=== PATIENT | female | born 1995 | race African-American/Black ===

== ENCOUNTER 2019-02-13 01:11 | Emergency (ER) | payer BC ==
[2019-02-13] MEDS ORDERED: Metoclopramide 10 MG/2 ML SDV IVPUSH ONE (01:13)
[2019-02-13] MEDS ORDERED: Sodium Chloride 0.9% 10 ML Syringe FLUSH PRN (01:13)
[2019-02-13] MEDS ORDERED: Sodium Chloride 0.9% 1,000 ML IV ONE (01:14)
--- NOTE | 2019-02-13 01:24 | EDM.PDOC ---
ED HPI GENERAL MEDICAL PROBLEM - General Chief Complaint: Gastrointestinal Problem Stated Complaint: Nausea / Vomiting Time Seen by Provider: 02/13/19 01:11 Source of Information: Reports: Patient, RN, RN Notes Reviewed History Limitations: Reports: No Limitations - History of Present Illness INITIAL COMMENTS - FREE TEXT/NARRATIVE: Patient presents to the ED at [facility] for the evaluation of nausea and vomiting that started around 5 pm last evening. She states her last meal was around 2pm. She does not think she has been around any sick contacts. No recent travel. No change in medications. No questionable foods. Patient states she has vomited at least 8 times since onset. No diarrhea. Has a headache. Has not taken anything for her symptoms. Denies any focal neurological problems. Patient is 7 months . She feels movement. Patient denies any recent illness. No fevers or chills. Denies any abdominal or pelvic pain. No vaginal discharge or leakage of fluid. Onset: Today Onset Date: 02/13/19 Onset Time: 17:00 Headache Pain Score (Numeric/FACES): 6 - Related Data Allergies Allergy/AdvReac Type Severity Reaction Status Date / Time Penicillins Allergy Hives Verified 02/13/19 01:13 Home Meds: Home Meds [id number]/Ferrous Fumarate/FA [ Tablet] 1 each PO DAILY 02/13/19 [History] ED ROS GENERAL - Review of Systems Review Of Systems: See Below Constitutional: Denies: Fever, Chills Respiratory: Denies: Shortness of Breath, Cough Cardiovascular: Denies: Chest Pain, Palpitations GI/Abdominal: Reports: Nausea, Vomiting. Denies: Abdominal Pain, Diarrhea Skin: Reports: No Symptoms Neurological: Reports: No Symptoms ED EXAM, GI/ABD - Physical Exam Exam: See Below Exam Limited By: No Limitations General Appearance: Alert, No Apparent Distress Respiratory/Chest: No Respiratory Distress, Lungs Clear, Normal Breath Sounds Cardiovascular: Normal Peripheral Pulses, Regular Rate, Rhythm GI/Abdominal Exam: Normal Bowel Sounds, Soft, Non-Tender Neurological: Alert, Oriented Skin Exam: Warm, Dry, Intact, Normal Color Course - Vital Signs Last Recorded V/S: Last Vital Signs Temp 36.9 C 02/13/19 01:43 Pulse 110 H 02/13/19 01:43 Resp 14 02/13/19 01:43 BP 117/62 02/13/19 01:43 Pulse Ox 100 04/29/19 01:43 - Orders/Labs/Meds Orders: Active Orders 24 hr Category Date Time Status Sodium Chloride 0.9% [Normal Saline] 1,000 ml Med 02/13/19 01:14 Active IV ONETIME Sodium Chloride 0.9% [Saline Flush] Med 02/13/19 01:13 Active 10 ml FLUSH ASDIRECTED PRN Peripheral IV Insertion Adult [OM.PC] Routine Oth 02/13/19 01:13 Ordered Medication Orders Sodium Chloride (Normal Saline) 1,000 mls @ 999 mls/hr IV ONETIME ONE Stop: 02/13/19 02:14 Last Admin: 02/13/19 01:27 Dose: 999 mls/hr Sodium Chloride (Saline Flush) 10 ml FLUSH ASDIRECTED PRN PRN Reason: Keep Vein Open Meds: Medications Generic Name Dose Route Start Last Admin Trade Name Freq PRN Reason Stop Dose Admin Sodium Chloride 1,000 mls @ 999 mls/hr 02/13/19 01:14 02/13/19 01:27 Normal Saline IV 02/13/19 02:14 999 mls/hr ONETIME ONE Administration Sodium Chloride 10 ml 02/13/19 01:13 Saline Flush FLUSH ASDIRECTED PRN Keep Vein Open Discontinued Medications Generic Name Dose Route Start Last Admin Trade Name Freq PRN Reason Stop Dose Admin Metoclopramide HCl 10 mg 02/13/19 01:13 02/13/19 01:27 Reglan IVPUSH 02/13/19 01:14 10 mg ONETIME ONE Administration Departure - Departure Time of Disposition: 01:52 Disposition: Home, Self-Care 01 Condition: Good Clinical Impression: Nausea and vomiting in - Discharge Information *PRESCRIPTION DRUG MONITORING PROGRAM REVIEWED*: Not Applicable *COPY OF PRESCRIPTION DRUG MONITORING REPORT IN PATIENT HAO: Not Applicable Instructions: Nausea and Vomiting, Adult Referrals: Adina Em MD [Primary Care Provider] - Forms: ED Department Discharge Additional Instructions: 1. Try to stay well hydrated and rest 2. See Dr. Em tomorrow for a follow up 3. Call with any questions or concerns - Problem List Review Problem List Initiated/Reviewed/Updated: Yes - My Orders Last 24 Hours: My Active Orders 02/13/19 01:13 Sodium Chloride 0.9% [Saline Flush] 10 ml FLUSH ASDIRECTED PRN Peripheral IV Insertion Adult [OM.PC] Routine 02/13/19 01:14 Sodium Chloride 0.9% [Normal Saline] 1,000 ml IV ONETIME - Assessment/Plan Last 24 Hours: My Active Orders 02/13/19 01:13 Sodium Chloride 0.9% [Saline Flush] 10 ml FLUSH ASDIRECTED PRN Peripheral IV Insertion Adult [OM.PC] Routine 02/13/19 01:14 Sodium Chloride 0.9% [Normal Saline] 1,000 ml IV ONETIME Assessment:: Nausea and Vomiting in Plan: Patient feeling much better after fluids and Reglan. Patient will be discharge home. Recommend seeing PCP today for further eval and possible treatment as symptoms warrant. Patient agrees with POC.
== END 2019-02-13 02:39 | disposition home or self-care (01) ==
LOC: VM.ED 01:11
DX: O21.9 Vomiting of pregnancy, unspecified (principal); Z88.0 Allergy status to penicillin; Z79.899 Other long term (current) drug therapy
CPT/HCPCS: 96361; 96374; 99284; J2765; J7030

== ENCOUNTER 2022-01-08 02:15 | Emergency (ER) | payer BC ==
[2022-01-08] MEDS ORDERED: Metoclopramide 10 MG/2 ML SDV IVPUSH ONE (02:40)
[2022-01-08] MEDS ORDERED: Ketorolac 30 MG/ML SDV IVPUSH ONE (02:40)
[2022-01-08] MEDS ORDERED: Lactated Ringers 1,000 ML IV ONE (02:40)
[2022-01-08] MEDS ORDERED: diphenhydrAMINE 50 MG/ML SDV IVPUSH ONE (02:40)
[2022-01-08] MEDS ORDERED: Sodium Chloride 0.9% 10 ML Syringe FLUSH PRN (02:40)
== END 2022-01-08 04:36 | disposition home or self-care (01) ==
LOC: VM.ED 02:15
DX: G43.909 Migraine, unspecified, not intractable, without status migrainosus (principal); Z88.0 Allergy status to penicillin
CPT/HCPCS: 96374; 96375; 99283; J1200; J1885; J2765; J7120

== ENCOUNTER 2022-03-26 02:06 | Emergency (ER) | payer BC ==
[2022-03-26] MEDS ORDERED: Ketorolac 30 MG/ML SDV IVPUSH ONE (02:22)
[2022-03-26] MEDS ORDERED: Ondansetron 4 MG/2 ML SDV IVPUSH ONE (02:22)
[2022-03-26] MEDS ORDERED: diphenhydrAMINE 50 MG/ML SDV IVPUSH ONE (02:22)
[2022-03-26] MEDS ORDERED: Lactated Ringers 1,000 ML IV ONE (02:23)
== END 2022-03-26 04:10 | disposition home or self-care (01) ==
LOC: VM.ED 02:06
DX: G43.909 Migraine, unspecified, not intractable, without status migrainosus (principal); Z88.0 Allergy status to penicillin
CPT/HCPCS: 96361; 96374; 96375; 99283; J1200; J1885; J2405; J7120